=== PATIENT | female | born 1955 | race Caucasian/White ===

== ENCOUNTER 2017-01-29 13:42 | Outpatient (CLI) | payer MEDICARE | END 2017-01-29 13:43 | disposition home or self-care (01) | DX: Z00.00 Encounter for general adult medical examination without abnormal findings (principal); Z12.11 Encounter for screening for malignant neoplasm of colon; Z12.12 Encounter for screening for malignant neoplasm of rectum; Z79.899 Other long term (current) drug therapy; J30.2 Other seasonal allergic rhinitis; J44.9 Chronic obstructive pulmonary disease, unspecified; E88.01 Alpha-1-antitrypsin deficiency; K21.9 Gastro-esophageal reflux disease without esophagitis; G43.909 Migraine, unspecified, not intractable, without status migrainosus; F41.9 Anxiety disorder, unspecified; F43.10 Post-traumatic stress disorder, unspecified; M79.1 Myalgia ==

== ENCOUNTER 2017-02-11 13:25 | Outpatient (CLI) | payer MEDICARE ==
--- NOTE | 2017-02-13 07:07 | Mammography Report ---
DIGITAL BILATERAL SCREENING MAMMOGRAM: 02/11/2017 CLINICAL HISTORY: This is a 61-year-old female in for routine screening mammogram. Patient has no family history of breast cancer. Patient has no breast surgical history. COMPARISON: 02/23/2008, 10/30/2013, 01/03/2015, 01/10/2015 TECHNIQUE: Craniocaudad and oblique lateral views of each breast were obtained with [facility] Full Field digital mammography. FINDINGS: Heterogeneously dense breasts are noted bilaterally. Some scattered benign-appearing calcifications are noted in the breasts. No significant clusters of calcification are seen. No significant masses are noted. No change is detected. IMPRESSION: BREASTS APPEAR RADIOGRAPHICALLY BENIGN. BIRADS 1 - NEGATIVE. RECOMMENDATIONS: Annual bilateral screening mammography. STANDARD QUALIFYING STATEMENTS 1. This examination was reviewed with the aid of Computer-Aided Detection (CAD). 2. A negative or benign imaging report should not delay biopsy if clinically suspicious findings are present. Consider surgical consultation if warranted. More than 5% of cancers are not identified by imaging. 3. Dense breasts may obscure an underlying neoplasm. JOB #: [id number] EXT JOB #: [id number] [email or web address]
== END 2017-02-11 13:26 | disposition home or self-care (01) ==
LOC: DI 13:25
PROVIDERS: ATTEND Internal Medicine
DX: Z12.31 Encounter for screening mammogram for malignant neoplasm of breast (principal)
CPT/HCPCS: 77067

== ENCOUNTER 2018-03-20 11:23 | Outpatient (CLI) | payer MEDICARE ==
--- NOTE | 2018-03-21 14:46 | Mammography Report ---
Procedure Date: 03/20/2018 Accession Number: [id number] / [id number] Procedure: [facility] - Screening Mammo Dig Bilat CPT Code: FULL RESULT: EXAM: Screening Mammo Dig Bilat DATE: 03/20/2018 11:44 AM CLINICAL HISTORY: 62-year-old nulliparous patient for screening TECHNIQUE: Bilateral CC and MLO views were obtained. COMPARISON: 02/11/2017, 01/10/2015, 01/03/2015, 10/30/2013 FINDINGS: The breasts demonstrate heterogeneously dense fibroglandular parenchyma bilaterally. Coarse and punctate, typically benign calcifications are present. No suspicious masses, clustered microcalcifications, or regions of architectural distortion are identified. IMPRESSION: Benign findings RECOMMENDATION: Routine annual screening unless otherwise clinically indicated. BIRADS CATEGORY 2: Benign findings STANDARD QUALIFYING STATEMENTS: 1. This examination was reviewed with the aid of Computer-Aided Detection (CAD). 2. A negative or benign imaging report should not delay biopsy if clinically suspicious findings are present. Consider surgical consultation if warrented. More than 5% of cancers are not identified by imaging. 3. Dense breasts may obscure an underlying neoplasm.
== END 2018-03-20 11:24 | disposition home or self-care (01) ==
LOC: DI 11:23
PROVIDERS: ATTEND Internal Medicine
DX: Z12.31 Encounter for screening mammogram for malignant neoplasm of breast (principal)
CPT/HCPCS: 77067

== ENCOUNTER 2018-09-11 14:00 | Outpatient (CLI) | payer MEDICARE | END 2018-09-11 14:01 | disposition EMS.NT | LOC: EMS 14:00 | PROVIDERS: ATTEND Surgery | DX: Z99.81 Dependence on supplemental oxygen (principal) ==

== ENCOUNTER 2019-08-05 13:07 | Outpatient (CLI) | payer MEDICARE | END 2019-08-05 13:08 | disposition EMS.NT | LOC: EMS 13:07 | PROVIDERS: ATTEND Surgery | DX: R06.02 Shortness of breath (principal); F41.9 Anxiety disorder, unspecified ==